=== PATIENT | male | born 1945 | race Caucasian/White ===

== ENCOUNTER 2023-07-08 06:11 | Outpatient (RCR) | payer OTHER, SELFPAY | END 2023-07-08 23:59 | disposition home or self-care (01) | LOC: RPT 06:11 | PROVIDERS: ATTENDING PHYSICIAN Internal Medicine | DX: M54.32 Sciatica, left side (principal); S33.6XXD Sprain of sacroiliac joint, subsequent encounter; Z73.6 Limitation of activities due to disability | CPT/HCPCS: 97110; 97162 ==

== ENCOUNTER 2023-08-03 08:17 | Outpatient (RCR) | payer OTHER, SELFPAY | END 2023-08-05 10:33 | disposition home or self-care (01) | LOC: RPT 08:17 | PROVIDERS: ATTENDING PHYSICIAN Internal Medicine | DX: M54.30 Sciatica, unspecified side (principal); S33.6XXD Sprain of sacroiliac joint, subsequent encounter; Z73.6 Limitation of activities due to disability | CPT/HCPCS: 97010; 97110 ==